=== PATIENT | female | born 1990 | race Caucasian/White ===

== ENCOUNTER 2024-02-03 09:14 | Emergency (ER) | payer SELFPAY ==
[~2024-02-03] VITALS: Ht 160 cm; Wt 95.3 kg
[2024-02-03 09:30] VITALS: BP 126/78; PULSE 90; RESP 18; TEMP 97.8; O2SAT 95
[2024-02-03 09:55] LABS: BILIRUBIN,URINE NEGATIVE (NEGATIVE); LEUKOCYTE ESTERASE ,URINE 1+ (NEGATIVE); NITRATE,URINE POSITIVE (NEGATIVE); PH,URINE 5.5 (4.5-8.0); UROBILINOGEN,URINE 0.2 E.U./dL (0.2)
[2024-02-03 09:58] LABS: APPEARANCE,URINE CLOUDY; UA COLOR YELLOW
[2024-02-03 10:08] VITALS: BP 120/66; PULSE 70; RESP 18; TEMP 97.8; O2SAT 95
[2024-02-03] MEDS ORDERED: PHEN-406 PO (10:09)
[2024-02-03] MEDS ORDERED: METH-622 PO (10:09)
[2024-02-03] MEDS ORDERED: KETO10TA PO (10:09)
[2024-02-03] MEDS ORDERED: SULF1TAB24 PO (10:09)
[2024-02-03] MEDS ORDERED: TORADOL ONE (10:11)
[2024-02-03] MEDS ORDERED: BACTRIM DS ONE (10:11)
[2024-02-03] MEDS ORDERED: PYRIDIUM PO ONE (10:11)
[2024-02-03] MEDS ORDERED: ROBAXIN ONE (10:11)
[2024-02-03] MEDS: TORADOL IM STA (10:17)
[2024-02-03] MEDS: BACTRIM DS PO STA (10:18)
[2024-02-03] MEDS: ROBAXIN PO STA (10:18)
[2024-02-03] MEDS: PYRIDIUM PO STA (10:18)
== END 2024-02-03 10:15 | disposition home or self-care (01) ==
LOC: ER 09:14
DX: N39.0 Urinary tract infection, site not specified (principal); M76.32 Iliotibial band syndrome, left leg
CPT/HCPCS: 99284; 87086; 81001; 81025; 87077; 87186; J2800; J8499; J1885